=== PATIENT | female | born 1955 | race Caucasian/White ===

== ENCOUNTER 2016-06-22 15:10 | Outpatient (RCR) | payer BC ==
[~2016-06-22 15:10] MED LIST: AMOXICILLIN 8751 TAB PO; AMOXICILLIN/CLA1 TA1; B-121000 MCG PO; COZAAR; D3-5050000 IU PO; FEMRING0.1 MG/24 VG; FIORICET 325 MG1 TA1 PO; HCTZ; MERIBIN5 MG PO; PEPCID 20MG TAB20 MG; PREMARIN0.625 MG PO
== END 2016-09-20 | disposition home or self-care (01) ==
LOC: MKS.ESL.PT
DX: I87.2 Venous insufficiency (chronic) (peripheral) (principal); M17.12 Unilateral primary osteoarthritis, left knee

== ENCOUNTER → 2016-07-14 | Outpatient (CLI) | payer BC, OTHER | LOC: COL.VAS 10:40 | DX: M79.662 Pain in left lower leg (principal); R60.0 Localized edema ==

== ENCOUNTER → 2016-12-15 | Outpatient (CLI) | payer BC, OTHER | LOC: ZCOL.LAB 16:05 | DX: Z01.812 Encounter for preprocedural laboratory examination (principal); Z86.14 Personal history of Methicillin resistant Staphylococcus aureus infection ==

== ENCOUNTER → 2017-05-21 | Outpatient (CLI) | payer BC | LOC: MC.RAD 14:20 | DX: Z12.31 Encounter for screening mammogram for malignant neoplasm of breast (principal); N64.89 Other specified disorders of breast ==

== ENCOUNTER → 2017-06-02 | Outpatient (CLI) | payer BC | LOC: MC.RAD 10:12 | DX: D24.2 Benign neoplasm of left breast (principal) ==

== ENCOUNTER 2017-12-21 11:05 | Inpatient (IN) | payer BC ==
[~2017-12-21] VITALS: Ht 170.2 cm; Wt 90.9 kg
[2017-12-21] VITALS (8 sets, daily range): BP systolic 108–125; BP diastolic 50–78; PULSE 68–77; TEMP 74–98.8
[2017-12-21] MEDS ORDERED: PREDNISONE10 MG PO (11:14)
[2017-12-21] MEDS ORDERED: MULTIVITAMIN1 CTB PO (11:14)
[2017-12-21] MEDS ORDERED: VITAMIN D31000 I1 PO (11:15)
[2017-12-21 11:27] LABS: BASO % 0.4 % (0.0-2.0); EOS # 0.1 (0.0-0.7); GRAN % 73.2 % (42.2-75.2); HEMATOCRIT 41.5 % (37.0-47.0); LYMPH # 1.5 (1.2-3.4); LYMPH % 21.7 % (20.0-51.0); MEAN CELL VOLUME 97 fl (80.0-100.0); MEAN CORPUSCULAR HEMOGLOBIN 33 pg (27.0-31.0); MEAN CORPUSCULAR HGB CONC 34 g/dl (33.0-37.0); MEAN PLATELET VOLUME 10.4 fl (7.4-10.4); MONO # 0.2 (0.1-0.6); MONO % 2.6 % (1.7-9.3); PLATELET COUNT 232 K/mm3 (130-400); RED BLOOD COUNT 4.29 M/mm3 (4.10-5.30); REDCELL DISTRIBUTION WIDTH-CV 13.3 % (11.5-14.5)
[2017-12-21 11:40] LABS: ALBUMIN 3.8 gm/dL (3.5-5.0); BILIRUBIN,TOTAL 0.4 mg/dL (0.0-1.0); CALCIUM 9.3 mg/dL (8.4-10.2); CREATININE, serum 0.64 mg/dL (0.52-1.25); POTASSIUM 4.4 mmol/L (3.4-5.0)
[2017-12-21 13:08] LABS: INR 0.9 (0.8-3.0); PROTHROMBIN TIME 10.4 SECONDS (9.7-12.8)
[2017-12-21 13:15] LABS: COLLECTION METHOD CLEAN CATCH
[2017-12-21 13:30] LABS: MUCOUS Present /lpf; PH 5 (5-8); SQUAMOUS EPITHELIAL 0-2 /hpf; URINE APPEARANCE Clear; URINE BACTERIA None Seen /hpf; URINE BILIRUBIN Negative (NEGATIVE); URINE BLOOD Negative (NEGATIVE); URINE COLOR Yellow; URINE GLUCOSE Negative (NEGATIVE); URINE KETONE Trace (NEGATIVE); URINE LEUKOCYTE ESTERASE Negative (NEGATIVE); URINE NITRATE Negative (NEGATIVE); URINE PROTEIN(semi-quant) Negative (NEGATIVE); URINE RBC 0-2 /hpf; URINE UROBILINOGEN Negative (NEGATIVE)
[2017-12-21 18:48] LABS: CALCIUM 8.4 mg/dL (8.4-10.2); CREATININE, serum 0.62 mg/dL (0.52-1.25); POTASSIUM 4.3 mmol/L (3.4-5.0)
[2017-12-22] VITALS (7 sets, daily range): BP systolic 101–120; BP diastolic 52–71; PULSE 57–69; TEMP 98.1–99.3
[2017-12-22 06:34] LABS: BASO % 0.1 % (0.0-2.0); GRAN # 10.1 (1.4-6.5); HEMATOCRIT 39.6 % (37.0-47.0); HEMOGLOBIN 12.9 g/dl (12.5-16.0); LYMPH # 1.3 (1.2-3.4); LYMPH % 10.3 % (20.0-51.0); MEAN CELL VOLUME 100 fl (80.0-100.0); MEAN CORPUSCULAR HEMOGLOBIN 32 pg (27.0-31.0); MEAN CORPUSCULAR HGB CONC 33 g/dl (33.0-37.0); MONO # 0.9 (0.1-0.6); MONO % 7.2 % (1.7-9.3); PLATELET COUNT 209 K/mm3 (130-400); RED BLOOD COUNT 3.98 M/mm3 (4.10-5.30); REDCELL DISTRIBUTION WIDTH-CV 13.7 % (11.5-14.5)
[2017-12-22 06:51] LABS: ALBUMIN 2.8 gm/dL (3.5-5.0); BILIRUBIN,TOTAL 0.5 mg/dL (0.0-1.0); CALCIUM 8.7 mg/dL (8.4-10.2); CREATININE, serum 0.65 mg/dL (0.52-1.25); POTASSIUM 4.5 mmol/L (3.4-5.0); TOTAL PROTEIN 5.4 gm/dL (6.4-8.2)
[2017-12-23 03:43] VITALS: BP 124/67; PULSE 60; TEMP 98.2
[2017-12-23 06:19] LABS: BASO % 0.3 % (0.0-2.0); EOS # 0.1 (0.0-0.7); EOS % 0.9 % (0-4.0); GRAN # 5.4 (1.4-6.5); GRAN % 71.5 % (42.2-75.2); HEMOGLOBIN 12.4 g/dl (12.5-16.0); LYMPH # 1.6 (1.2-3.4); LYMPH % 20.5 % (20.0-51.0); MEAN CELL VOLUME 98 fl (80.0-100.0); MEAN CORPUSCULAR HEMOGLOBIN 32 pg (27.0-31.0); MEAN CORPUSCULAR HGB CONC 33 g/dl (33.0-37.0); MEAN PLATELET VOLUME 10.9 fl (7.4-10.4); MONO # 0.5 (0.1-0.6); MONO % 6.5 % (1.7-9.3); PLATELET COUNT 164 K/mm3 (130-400); RED BLOOD COUNT 3.86 M/mm3 (4.10-5.30); REDCELL DISTRIBUTION WIDTH-CV 13.5 % (11.5-14.5)
[2017-12-23 06:36] LABS: ALBUMIN 2.6 gm/dL (3.5-5.0); CALCIUM 8.6 mg/dL (8.4-10.2); CREATININE, serum 0.66 mg/dL (0.52-1.25); PHOSPHOROUS 3.2 mg/dL (2.5-4.5)
[2017-12-23 07:22] VITALS: BP 122/70; PULSE 52; TEMP 98.3
[2017-12-23] MEDS ORDERED: ULTRAM 50MG TAB50 MG PO (09:36)
[2017-12-23 12:04] VITALS: BP 145/70; PULSE 52; TEMP 97.7
[2017-12-23] MEDS ORDERED: PERCOCET 325 MG1 TA2 PO (13:50)
== END 2017-12-23 17:20 | disposition home or self-care (01) | DRG 358 ==
LOC: COL.ER 11:05 → SURG 12:27 → COL.ER 14:03 → SURG 16:38
PROVIDERS: Emergency Medicine; Surgery
PROC: 0DQV0ZZ Repair Mesentery, Open Approach (ICD-10-PCS; principal; 2017-12-21 14:30)
PROC: 0WJG4ZZ Inspection of Peritoneal Cavity, Percutaneous Endoscopic Approach (ICD-10-PCS; 2017-12-21 14:30)
DX: K46.0 Unspecified abdominal hernia with obstruction, without gangrene (principal); Z98.84 Bariatric surgery status; Z53.31 Laparoscopic surgical procedure converted to open procedure
CPT/HCPCS: A4314; A9284; J0330; J0500; J0690; J1170; J1650; J1720; J2250; J2405; J2550; J2704; J2795; J3010; J7030; J7120; J7512; Q9967

== ENCOUNTER → 2019-08-24 | Outpatient (CLI) | payer BC ==
[~2019-08-24] MED LIST changes: +MULTIVITAMIN1 CTB PO; +PERCOCET 325 MG1 TA2 PO; +PREDNISONE10 MG PO; +ULTRAM 50MG TAB50 MG PO; +VITAMIN D31000 I1 PO
== END ==
LOC: MC.RAD 13:22
DX: Z12.31 Encounter for screening mammogram for malignant neoplasm of breast (principal)

== ENCOUNTER → 2020-09-19 | Outpatient (CLI) | payer BC | LOC: ZCOL.LAB 16:54 | DX: M79.604 Pain in right leg (principal) ==

== ENCOUNTER 2021-07-18 08:01 | Outpatient (CLI) | payer MEDICARE ==
[~2021-07-18] VITALS: Ht 170.3 cm; Wt 105.5 kg
[2021-07-18] MEDS ORDERED: ELIQUIS 5MG PO (08:46)
[2021-07-18 08:47] VITALS: BP 113/72; PULSE 60; TEMP 98.2
[2021-07-18 08:50] VITALS: BP 113/72; PULSE 60; TEMP 98.2
[2021-07-18 09:40] VITALS: BP 127/81; PULSE 61
--- NOTE | 2021-07-18 09:53 | NUR ---
Pt ready for departure/ I reviewed dc/fu and rx instructions with pt who verbalized understanding. loop insertion site covered with clean and dry gauze. pt denies any discomfort or questions at time of departure. Amb to exit at 0940.
== END 2021-07-18 09:45 | disposition home or self-care (01) ==
LOC: COL.CAR 08:01
DX: I48.91 Unspecified atrial fibrillation (principal); I08.1 Rheumatic disorders of both mitral and tricuspid valves; I48.11 Longstanding persistent atrial fibrillation; E66.9 Obesity, unspecified; R55 Syncope and collapse; Z68.39 Body mass index [BMI] 39.0-39.9, adult; Z79.82 Long term (current) use of aspirin; Z79.899 Other long term (current) drug therapy; Z79.01 Long term (current) use of anticoagulants; Z79.891 Long term (current) use of opiate analgesic
CPT/HCPCS: 27886; C1764

== ENCOUNTER → 2022-05-05 | Outpatient (CLI) | payer MEDICARE, BC ==
[~2022-05-05] MED LIST changes: +ELIQUIS 5MG PO
== END ==
LOC: MC.RAD 14:45
DX: Z12.31 Encounter for screening mammogram for malignant neoplasm of breast (principal)

== ENCOUNTER → 2024-04-18 | Outpatient (CLI) | payer MEDICARE, BC | LOC: MC.RAD 07:38 | DX: Z12.31 Encounter for screening mammogram for malignant neoplasm of breast (principal) ==